=== PATIENT | male | born 1975 | race Caucasian/White ===

== ENCOUNTER 2020-02-17 19:24 | Inpatient (IN) | payer OTHER ==
[2020-02-17 19:31] VITALS: BMI 26.5
[2020-02-17] MEDS ORDERED: LORazepam 2 MG/ML SDV VIAL ONE ×2 (19:54→20:24)
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
[2020-02-17 20:46] LABS: BASO % 0.7 % (0-2.0); EOS % 2.1 % (0-4.5); HEMATOCRIT 46.3 % (35.4-49); HEMOGLOBIN 15.8 GM/dL (11.7-16.9); LYMPH % 33.4 % (8-40); MCH 29.9 pg (25.7-33.7); MEAN CELL VOLUME 87.7 fl (80-96); MEAN PLT VOLUME 8.2 fl (7.5-11.1); MONO % 7.6 % (3.8-10.2); NEUT % 56.2 % (42.8-82.8); PLATELET COUNT 249 K/MM3 (134-434); RBC 5.28 M/mm3 (4.00-5.60); RDW 13.4 % (11.9-15.9); WHITE BLOOD COUNT 5.5 K/mm3 (4.0-10.0)
[2020-02-17 20:52] LABS: INR 0.87 (0.83-1.09); PROTHROMBIN TIME (PATIENT) 10.2 SEC (9.7-13.0)
[2020-02-17 21:13] LABS: ALBUMIN 4.2 g/dl (3.4-5.0); ALK PHOS 113 U/L (45-117); ANION GAP 11 MMOL/L (8-16); BILIRUBIN,TOTAL 0.5 mg/dL (0.2-1); BLOOD UREA NITROGEN 11.8 mg/dL (7-18); CALCIUM 8.3 mg/dL (8.5-10.1); CHLORIDE 106 mmol/L (98-107); CO2 25 mmol/L (21-32); CREATININE 0.8 mg/dL (0.55-1.3); GLUCOSE,RANDOM 90 mg/dL (74-106); LIPASE 210 U/L (73-393); MAGNESIUM 2.2 mg/dL (1.8-2.4); POTASSIUM 5.2 mmol/L (3.5-5.1); SGOT/AST 96 U/L (15-37); SGPT/ALT 87 U/L (13-61); SODIUM 142 mmol/L (136-145); TOT PROT 8.2 g/dl (6.4-8.2)
[2020-02-17] MEDS ORDERED: levETIRAcetam 500 MG/5 ML INJECTION VIAL IVPB ONE ×2 (21:19→21:32)
[2020-02-17] MEDS ORDERED: FOLIC ACID INJECTION - 1 MG, THIAMINE HCL 100 MG, MULTIVIT INJECTION ADULT 10 ML in SOD... IVPB ONE (21:21)
[2020-02-17 21:36] LABS: EPI CELLS 3 /uL (0-25.1); HYALINE CASTS 1 /uL (0-3.1); URINE APPEARANCE Error; URINE BACTERIA 24 /uL (0-1359); URINE BILIRUBIN NEGATIVE (NEGATIVE); URINE COLOR YELLOW; URINE GLUCOSE (UA) NEGATIVE (NEGATIVE); URINE KETONE NEGATIVE (NEGATIVE); URINE LEUK ESTERASE NEGATIVE (NEGATIVE); URINE NITRITE NEGATIVE (NEGATIVE); URINE PROTEIN 1+ (NEGATIVE); URINE RBC 5 /uL (0-23.9); URINE UROBILINOGEN 0.2 mg/dL (0.2-1.0); URINE WBC 2 /uL (0-25.8)
[2020-02-18] MEDS ORDERED: chlordiazePOXIDE HCL 25 MG CAPSULE PO ONE (06:28)
--- NOTE | 2020-02-18 06:33 | PDOC ---
*Physical Exam - Vital Signs Last Vital Signs Temp Pulse Resp BP Pulse Ox 98.4 F 79 22 H 128/84 95 02/17/20 19:29 02/18/20 02:21 02/18/20 02:21 02/18/20 02:21 02/18/20 02:21 - Physical Exam Physical Exam: Patient demonstrates bilateral hand tremmors, tongue fasciculations, and is tachycardic. ED Treatment Course - LABORATORY CBC & Chemistry Diagram: 02/17/20 20:00 02/17/20 21:32 - ADDITIONAL ORDERS Additional order review: Laboratory Results 02/17/20 02/17/20 02/17/20 21:32 20:15 20:00 PT with INR INR PTT (Actin FS) Sodium 142 Potassium 3.9 5.2 H Chloride 106 Carbon Dioxide 25 Anion Gap 11 BUN 11.8 Creatinine 0.8 Est GFR (CKD-EPI)AfAm 127.70 Est GFR (CKD-EPI)NonAf 110.18 Random Glucose 90 Calcium 8.3 L Magnesium 2.2 Total Bilirubin 0.5 AST 96 H ALT 87 H Alkaline Phosphatase 113 Creatine Kinase 675 H Creatine Kinase Index 0.4 CK-MB (CK-2) 2.75 Troponin I < 0.02 Total Protein 8.2 Albumin 4.2 Lipase 210 Urine Color Yellow Urine Appearance Error Urine pH 5.0 Ur Specific [place] 1.017 Urine Protein 1+ H Urine Glucose (UA) Negative Urine Ketones Negative Urine Blood Trace Urine Nitrite Negative Urine Bilirubin Negative Urine Urobilinogen 0.2 Ur Leukocyte Esterase Negative Urine WBC (Auto) 2 Urine RBC (Auto) 5 Urine Casts (Auto) 1 U Epithel Cells (Auto) 3 Urine Bacteria (Auto) 24 Alcohol, Quantitative 359.5 H 02/17/20 20:00 PT with INR 10.20 INR 0.87 PTT (Actin FS) 33.0 Sodium Potassium Chloride Carbon Dioxide Anion Gap BUN Creatinine Est GFR (CKD-EPI)AfAm Est GFR (CKD-EPI)NonAf Random Glucose Calcium Magnesium Total Bilirubin AST ALT Alkaline Phosphatase Creatine Kinase Creatine Kinase Index CK-MB (CK-2) Troponin I Total Protein Albumin Lipase Urine Color Urine Appearance Urine pH Ur Specific [place] Urine Protein Urine Glucose (UA) Urine Ketones Urine Blood Urine Nitrite Urine Bilirubin Urine Urobilinogen Ur Leukocyte Esterase Urine WBC (Auto) Urine RBC (Auto) Urine Casts (Auto) U Epithel Cells (Auto) Urine Bacteria (Auto) Alcohol, Quantitative 02/17/20 20:00 RBC 5.28 MCV 87.7 MCHC 34.0 RDW 13.4 MPV 8.2 D Neutrophils % 56.2 Lymphocytes % 33.4 Monocytes % 7.6 Eosinophils % 2.1 Basophils % 0.7 - Medications Given in the ED: ED Medications Discontinued Medications Generic Name Dose Route Start Last Admin Trade Name Freq PRN Reason Stop Dose Admin Folic Acid 1 mg/ Thiamine HCl 1,000 mls @ 125 mls/hr 02/17/20 21:21 02/17/20 22:00 100 mg/ Multivitamins/Minerals IVPB 02/18/20 05:20 125 mls/hr 10 ml/ Sodium Chloride ONCE ONE Administration Levetiracetam 1,000 mg 02/17/20 21:19 02/17/20 21:36 Keppra Injection - IVPB 02/17/20 21:20 1,000 mg ONCE ONE Administration Lorazepam 2 mg 02/17/20 20:18 02/17/20 20:29 Ativan Injection - IM 02/17/20 20:19 2 mg ONCE ONE Administration Medical Decision Making - Medical Decision Making Patient was reassessed at 6:20 am and found to be tachycardic with bilateral hand tremmors and tongue fasciculations. Will admit patient for acute alcohol withdrawal. dispo: admit to medicine for acute alcohol withdrawal. Discharge - Discharge Information Problems reviewed: Yes Clinical Impression/Diagnosis: Seizure Head injury Qualifiers: Encounter type: initial encounter Qualified Code(s): S09.90XA - Unspecified injury of head, initial encounter Condition: Improved Disposition: HOME - Additional Discharge Information Prescriptions: levETIRAcetam [Keppra -] 500 mg PO BID #14 tablet - Follow up/Referral - Patient Discharge Instructions Patient Printed Discharge Instructions: Seizure Disorder -- Adult Additional Instructions: You came to the ED for seizure like symptoms. This is most likely due to your seizure disorder. At the ED we got imaging and labs. The imaging showed no acute pathology. The labs showed elevated CPK which we gave you a banana bag for. You were having seizures here so we decided to give you medication for that and give you your medication for that as well. At the ED we observed you for any more seizures which you did not have. Please follow up with your neurologist within the next few days. Also, please follow up with rehab for your alcohol disorder. If you have any of the following please return: - unbreakable seizure - shortness of breath - chest pain. - unable to take anything by mouth For any emergent symptoms please call for medical help right away. - Post Discharge Activity
[2020-02-18] MEDS ORDERED: chlordiazePOXIDE HCL 25 MG CAPSULE ONE (06:34)
[2020-02-18] MEDS ORDERED: LORazepam 2 MG/ML SDV VIAL ONE ×3 (06:34→20:27)
--- NOTE | 2020-02-18 07:27 | PDOC ---
*Physical Exam - Vital Signs Last Vital Signs Temp Pulse Resp BP Pulse Ox 98.4 F 114 H 20 149/89 96 02/17/20 19:29 02/18/20 06:41 02/18/20 06:41 02/18/20 06:41 02/18/20 06:41 ED Treatment Course - LABORATORY CBC & Chemistry Diagram: 02/17/20 20:00 02/17/20 21:32 - ADDITIONAL ORDERS Additional order review: Laboratory Results 02/17/20 02/17/20 02/17/20 21:32 20:15 20:00 PT with INR INR PTT (Actin FS) Sodium 142 Potassium 3.9 5.2 H Chloride 106 Carbon Dioxide 25 Anion Gap 11 BUN 11.8 Creatinine 0.8 Est GFR (CKD-EPI)AfAm 127.70 Est GFR (CKD-EPI)NonAf 110.18 Random Glucose 90 Calcium 8.3 L Magnesium 2.2 Total Bilirubin 0.5 AST 96 H ALT 87 H Alkaline Phosphatase 113 Creatine Kinase 675 H Creatine Kinase Index 0.4 CK-MB (CK-2) 2.75 Troponin I < 0.02 Total Protein 8.2 Albumin 4.2 Lipase 210 Urine Color Yellow Urine Appearance Error Urine pH 5.0 Ur Specific [place] 1.017 Urine Protein 1+ H Urine Glucose (UA) Negative Urine Ketones Negative Urine Blood Trace Urine Nitrite Negative Urine Bilirubin Negative Urine Urobilinogen 0.2 Ur Leukocyte Esterase Negative Urine WBC (Auto) 2 Urine RBC (Auto) 5 Urine Casts (Auto) 1 U Epithel Cells (Auto) 3 Urine Bacteria (Auto) 24 Alcohol, Quantitative 359.5 H 02/17/20 20:00 PT with INR 10.20 INR 0.87 PTT (Actin FS) 33.0 Sodium Potassium Chloride Carbon Dioxide Anion Gap BUN Creatinine Est GFR (CKD-EPI)AfAm Est GFR (CKD-EPI)NonAf Random Glucose Calcium Magnesium Total Bilirubin AST ALT Alkaline Phosphatase Creatine Kinase Creatine Kinase Index CK-MB (CK-2) Troponin I Total Protein Albumin Lipase Urine Color Urine Appearance Urine pH Ur Specific [place] Urine Protein Urine Glucose (UA) Urine Ketones Urine Blood Urine Nitrite Urine Bilirubin Urine Urobilinogen Ur Leukocyte Esterase Urine WBC (Auto) Urine RBC (Auto) Urine Casts (Auto) U Epithel Cells (Auto) Urine Bacteria (Auto) Alcohol, Quantitative 02/17/20 20:00 RBC 5.28 MCV 87.7 MCHC 34.0 RDW 13.4 MPV 8.2 D Neutrophils % 56.2 Lymphocytes % 33.4 Monocytes % 7.6 Eosinophils % 2.1 Basophils % 0.7 - Medications Given in the ED: ED Medications Discontinued Medications Generic Name Dose Route Start Last Admin Trade Name Obey PRN Reason Stop Dose Admin Chlordiazepoxide HCl 50 mg 02/18/20 06:28 02/18/20 06:41 Librium - PO 02/18/20 06:29 50 mg ONCE ONE Administration Folic Acid 1 mg/ Thiamine HCl 1,000 mls @ 125 mls/hr 02/17/20 21:21 02/17/20 22:00 100 mg/ Multivitamins/Minerals IVPB 02/18/20 05:20 125 mls/hr 10 ml/ Sodium Chloride ONCE ONE Administration Levetiracetam 1,000 mg 02/17/20 21:19 02/17/20 21:36 Keppra Injection - IVPB 02/17/20 21:20 1,000 mg ONCE ONE Administration Lorazepam 2 mg 02/17/20 20:18 02/17/20 20:29 Ativan Injection - IM 02/17/20 20:19 2 mg ONCE ONE Administration Lorazepam 2 mg 02/18/20 06:28 02/18/20 06:40 Ativan Injection - IVPUSH 02/18/20 06:29 2 mg ONCE ONE Administration ED Progress Note - Progress Note Progress Note: 02/18/20 07:26 Patient accepted at sign out, pending admission for alcohol withdrawal. Comfortable in bed. Admitting resident examining the patient. Signed out to admitting team. 02/18/20 07:44 Discharge - Discharge Information Problems reviewed: Yes Clinical Impression/Diagnosis: Seizure Head injury Qualifiers: Encounter type: initial encounter Qualified Code(s): S09.90XA - Unspecified injury of head, initial encounter Alcohol withdrawal Qualifiers: Complication of substance-induced condition: uncomplicated Qualified Code(s): F10.230 - Alcohol dependence with withdrawal, uncomplicated Condition: Fair - Admission Yes - Follow up/Referral - Patient Discharge Instructions Patient Printed Discharge Instructions: Seizure Disorder -- Adult Additional Instructions: You came to the ED for seizure like symptoms. This is most likely due to your seizure disorder. At the ED we got imaging and labs. The imaging showed no acute pathology. The labs showed elevated CPK which we gave you a banana bag for. You were having seizures here so we decided to give you medication for that and give you your medication for that as well. At the ED we observed you for any more seizures which you did not have. Please follow up with your neurologist within the next few days. Also, please f ollow up with rehab for your alcohol disorder. If you have any of the following please return: - unbreakable seizure - shortness of breath - chest pain. - unable to take anything by mouth For any emergent symptoms please call for medical help right away. - Post Discharge Activity
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
[2020-02-18] MEDS ORDERED: FOLIC ACID INJECTION - 1 MG, THIAMINE HCL 100 MG, MULTIVIT INJECTION ADULT 10 ML in SOD... IVPB ONE (09:11)
[2020-02-18] MEDS ORDERED: IBUPROFEN 600 MG TABLET (FP) PO PRN (09:12)
--- NOTE | 2020-02-18 09:16 | EKG ---
Test Reason : Blood Pressure : / mmHG Vent. Rate : 094 BPM Atrial Rate : 094 BPM P-R Int : 124 ms QRS Dur : 094 ms QT Int : 388 ms P-R-T Axes : 056 -07 035 degrees QTc Int : 485 ms NORMAL SINUS RHYTHM ABNORMAL ECG NO PREVIOUS ECGS AVAILABLE Confirmed by MEJIA HARRIS MD ([id number]) on 02/18/2020 9:15:43 AM Referred By: Confirmed By:MEJIA HARRIS MD
[2020-02-18] MEDS ORDERED: PANTOPRAZOLE SODIUM 40 MG VIAL ONE (10:33)
[2020-02-18] MEDS ORDERED: FOLIC ACID 1 MG TABLET (FP) ONE (10:33)
[2020-02-18] MEDS ORDERED: MULTIVITAMINS (DAILY MVI) TABLET (FP) ONE (10:33)
[2020-02-18] MEDS ORDERED: HEPARIN NA (PORCINE) 5,000 UNITS/ML 1ML VIAL ONE (10:33)
[2020-02-18] MEDS ORDERED: levETIRAcetam 500 MG TABLET (FP) PO ONE ×2 (10:33→22:14)
[2020-02-18] MEDS ORDERED: THIAMINE HCL 100 MG TABLET (FP) ONE (10:33)
[2020-02-18] MEDS: levETIRAcetam 500 MG TABLET (FP) PO SCH ×2 (10:48→22:17)
[2020-02-18] MEDS: PANTOPRAZOLE SODIUM 40 MG VIAL IVPUSH SCH (10:48)
[2020-02-18] MEDS: HEPARIN NA (PORCINE) 5,000 UNITS/ML 1ML VIAL SQ SCH ×2 (10:48→18:08)
[2020-02-18] MEDS: NICOTINE 14 MG/24 HOURS TOPICAL PATCH TD SCH (11:28)
[2020-02-18 12:30] LABS: BASO % 0.6 % (0-2.0); EOS % 0.1 % (0-4.5); HEMATOCRIT 41.6 % (35.4-49); HEMOGLOBIN 14.2 GM/dL (11.7-16.9); LYMPH % 12.2 % (8-40); MCHC 34.2 g/dl (32.0-35.9); MEAN CELL VOLUME 87.6 fl (80-96); MEAN PLT VOLUME 8.4 fl (7.5-11.1); MONO % 4.8 % (3.8-10.2); NEUT % 82.3 % (42.8-82.8); PLATELET COUNT 220 K/MM3 (134-434); RBC 4.74 M/mm3 (4.00-5.60); RDW 13.1 % (11.9-15.9); WHITE BLOOD COUNT 8.5 K/mm3 (4.0-10.0)
[2020-02-18] MEDS ORDERED: PROMETHAZINE HCL 25 MG/1 ML VIAL IVPUSH PRN (15:24)
[2020-02-18] MEDS ORDERED: CEFTRIAXONE 1 GM in DEXTROSE 5%-WATER - 50 ML IVPB SCH (15:30)
[2020-02-18] MEDS ORDERED: CEFTRIAXONE 1 GM/50 ML BAG ONE (15:40)
--- NOTE | 2020-02-18 16:36 | CON.PSY ---
Psychiatry Consult Chief Complaint: 44 Year old male with Severe Substance abuse reansfeered from [facility] for Seizures. patient seen for Psych eval for? suicidal thoughts.. Patient denies that he reported feeling Suicidal. I drink a lot, came in for Detox. I dont want to Kill myself. - Previous Psychiatric Treatment Outpatient: None - Previous Substance Abuse Treatment Outpatient: More than 6 mos ago Inpatient: One prior admission - Reason for Previous Treatment Reason for Previous Treatment: Alcohol Abuse - Current Medications Current Medications: Active Medications Folic Acid (Folic Acid -) 1 mg PO DAILY [facility] Heparin Sodium (Porcine) (Heparin -) 5,000 unit SQ Q8H-IV WILLIAM Last Admin: 02/18/20 10:48 Dose: 5,000 unit Documented by: Folic Acid 1 mg/ Thiamine HCl 100 mg/ Multivitamins/Minerals 10 ml/ Sodium Chloride 1,000 mls @ 125 mls/hr IVPB ONCE ONE Stop: 02/18/20 17:10 Last Admin: 02/18/20 10:47 Dose: 125 mls/hr Documented by: Piperacillin Sod/Tazobactam (Sod 3.375 gm/ Dextrose) 50 mls @ 100 mls/hr IVPB Q8H-IV WILLIAM; Protocol Ibuprofen (Motrin -) 600 mg PO Q6H PRN PRN Reason: FEVER Levetiracetam (Keppra -) 500 mg PO BID [facility] Last Admin: 02/18/20 10:48 Dose: 500 mg Documented by: Lorazepam (Ativan Injection -) 2 mg IVPUSH Q4H PRN PRN Reason: ANXIETY Multivitamins/Minerals/Vitamin C (Tab-A-Vit -) 1 tab PO DAILY [facility] Nicotine (Nicoderm Patch -) 14 mg TD DAILY [facility] Last Admin: 02/18/20 11:28 Dose: 14 mg Documented by: Pantoprazole Sodium (Protonix Iv) 40 mg IVPUSH DAILY [facility] Last Admin: 02/18/20 10:48 Dose: 40 mg Documented by: Promethazine HCl (Phenergan Injection -) 12.5 mg IVPUSH Q6H PRN PRN Reason: NAUSEA Thiamine HCl (Vitamin B1 -) 100 mg PO DAILY [facility] - Allergies Allergies: Allergies Allergy/AdvReac Type Severity Reaction Status Date / Time No Known Drug Allergies Allergy Verified 02/17/20 19:31 seafood Allergy Uncoded 02/17/20 19:31 - Current Living Status Usual Living Arrangement: Alone - Current Mental Status Evaluation Appearance: Disheveled Attitude: Guarded - Affect Affect: Full Range Appropriateness: Appropriate to Content - Mood Mood: Irritable - Speech/Language Expressive: Coherent - Psychomotor Activity Psychomotor Activity: Normal - Thought Process Thought Process: Intact - Thought Content Hallucinations: Absent Delusions: Absent - Self Perception Self Perception: No Impairment - Cognition Attention: Alert Orientation: Time Memory, Immediate Recall: Intact Memory, Short Term: 3/3 Memory, Remote with Promptin/3 - Concentration Serial Sevens Intact: No Simple Calculations Intact: Yes - Abstraction Proverb Interpretation: Intact Judgement: Minimally Impaired - Insight Insight: Intact - Impulse Control Impulse Control: Minimally Impaired - Suicidal Ideation Suicidal Ideation: No - Homicidal Ideation Homicidal Ideation: No Assessment/Plan 1) Patient is not suicidal at this time. 2) No need for 1:1. 3) continue with Detox and Medical care for Seizures. 4) No psyxch meds needed now.
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
[2020-02-18] MEDS: PIPERACILLIN/TAZOB 3.375 GM 3.375 GM in DEXTROSE 5%-WATER - 50 ML IVPB SCH (17:31)
[2020-02-18] MEDS ORDERED: PIPERACILLIN/TAZOB 3.375 GM 3.375 GM/50 ML BAG IVPB ONE (17:33)
[2020-02-18] MEDS: LORazepam 2 MG/ML SDV VIAL IVPUSH PRN (20:51)
[2020-02-18] MEDS ORDERED: IBUPROFEN 600 MG TABLET (FP) PO ONE (22:14)
[2020-02-19] MEDS ORDERED: DEXTROSE 5%-WATER - 50 ML IVPB ONE ×3 (03:08→12:01)
[2020-02-19] MEDS ORDERED: PIPERACILLIN/TAZOBACTAM 3.375 GM VIAL IVPB ONE ×2 (03:08→09:24)
[2020-02-19] MEDS: HEPARIN NA (PORCINE) 5,000 UNITS/ML 1ML VIAL SQ SCH ×3 (03:56→17:28)
[2020-02-19] MEDS: PIPERACILLIN/TAZOB 3.375 GM 3.375 GM in DEXTROSE 5%-WATER - 50 ML IVPB SCH ×3 (03:56→12:05)
[2020-02-19 07:15] LABS: ALBUMIN 3.6 g/dl (3.4-5.0); BILIRUBIN,TOTAL 2.2 mg/dL (0.2-1); BLOOD UREA NITROGEN 13.5 mg/dL (7-18); CALCIUM 8.7 mg/dL (8.5-10.1); CREATININE 0.9 mg/dL (0.55-1.3); MAGNESIUM 1.7 mg/dL (1.8-2.4); PHOSPHOROUS 3.7 mg/dL (2.5-4.9); POTASSIUM 3.7 mmol/L (3.5-5.1); TOT PROT 6.6 g/dl (6.4-8.2)
[2020-02-19 07:16] LABS: BASO % 0.6 % (0-2.0); EOS % 4.3 % (0-4.5); HEMOGLOBIN 13.5 GM/dL (11.7-16.9); LYMPH % 27.9 % (8-40); MCH 29.7 pg (25.7-33.7); MCHC 34.6 g/dl (32.0-35.9); MEAN CELL VOLUME 85.7 fl (80-96); MEAN PLT VOLUME 8.4 fl (7.5-11.1); MONO % 11.4 % (3.8-10.2); NEUT % 55.8 % (42.8-82.8); PLATELET COUNT 195 K/MM3 (134-434); RBC 4.55 M/mm3 (4.00-5.60); WHITE BLOOD COUNT 5.5 K/mm3 (4.0-10.0)
[2020-02-19] MEDS ORDERED: MAGNESIUM CL 64 MG TABLET.SA PO ONE (07:48)
[2020-02-19] MEDS ORDERED: MAGNESIUM 1GM/D5W 100ML - 100 ML IVPB IVPB ONE (07:49)
[2020-02-19] MEDS: PANTOPRAZOLE SODIUM 40 MG VIAL IVPUSH SCH (09:51)
[2020-02-19] MEDS: FOLIC ACID 1 MG TABLET (FP) PO SCH (09:51)
[2020-02-19] MEDS: MULTIVITAMINS (DAILY MVI) TABLET (FP) PO SCH (09:51)
[2020-02-19] MEDS: NICOTINE 14 MG/24 HOURS TOPICAL PATCH TD SCH (09:51)
[2020-02-19] MEDS: levETIRAcetam 500 MG TABLET (FP) PO SCH ×2 (09:51→21:16)
[2020-02-19] MEDS: THIAMINE HCL 100 MG TABLET (FP) PO SCH (09:52)
[2020-02-19] MEDS ORDERED: cefTRIAXone SODIUM 1 GM VIAL ONE (12:01)
[2020-02-19] MEDS: CEFTRIAXONE 1 GM in DEXTROSE 5%-WATER - 50 ML IVPB SCH (12:04)
--- NOTE | 2020-02-19 12:10 | CON.GI ---
Consult Consult Specialty:: GI Referred by:: [facility] Reason for Consultation:: Colitis - History of Present Illness Chief Complaint: Seizures History of Present Illness: 44M admitted for evaluation of seizures. He drinks a gallon + of vodka per day. he lives in the [place] but was transported up to [facility] for detox. Describes abdominal pain for 2 days (upper andomen, left upper abdomen). Some loose bowel movements. No rectal bleeding. May have had a colonoscopy but cannot recall. No recent antibiotic use. Normal WBC's and afebrile on admission. There is question of right sided colitis on CT scan and also of pancreatic / peripancreatic calcirfications. Abd US revealed fatty liver. - History Source History Provided By: Patient, Medical Record - Past Medical History IV THERAPY NURSE: Yes: Seizure Gastrointestinal: Yes: Pancreatitis (8 years ago per patient) Psych: Yes: Addictions (AUD), Bipolar - Alcohol/Substance Use Hx Alcohol Use: Yes (1 gallon + per day) History of Substance Use: reports: Heroin (Past intranasal heroin abuse) - Smoking History Smoking history: Current every day smoker Have you smoked in the past 12 months: Yes Aproximately how many cigarettes per day: 10 - Social History Usual Living Arrangement: Alone ADL: Independent Occupation: Unemployed Place of : [facility] History of Recent Travel: No Home Medications - Allergies Allergies/Adverse Reactions: Allergies Allergy/AdvReac Type Severity Reaction Status Date / Time No Known Drug Allergies Allergy Verified 02/17/20 19:31 seafood Allergy Uncoded 02/17/20 19:31 - Home Medications Home Medications: Ambulatory Orders Aripiprazole [Abilify -] 20 mg PO BID #60 tablet 11/10/13 levETIRAcetam [Keppra -] 500 mg PO BID 02/18/20 Family Medical History Other Family History: Mother: : Lung Ca (non-smoker). Father: Killed. 2 brothers (one with heart surgery when younger), 2 sisters: healthy. 3 sons, 3 daughters: healthy. No family history of colorectal cancer or other GI malignancy Review of Systems - Review of Systems Constitutional: denies: Chills Cardiovascular: denies: Chest Pain Respiratory: denies: Cough Gastrointestinal: reports: Abdominal Pain, Diarrhea. denies: Dysphagia, Nausea, Rectal Bleeding Physical Exam-GI Vital Signs: Vital Signs Temperature 98.1 F 02/19/20 06:00 Pulse Rate 77 02/19/20 06:00 Respiratory Rate 20 02/19/20 06:00 Blood Pressure 134/92 02/19/20 06:00 O2 Sat by Pulse Oximetry (%) 96 02/19/20 01:18 Constitutional: Yes: Calm Eyes: No: Sclera Icterus Cardiovascular: Yes: Regular Rate and Rhythm Respiratory: Yes: CTA Bilaterally Gastrointestinal Inspection: No: Distention ...Auscultate: Yes: Normoactive Bowel Sounds ...Palpate: Yes: Soft, Tenderness (Mild TTP mid abdomen and left abdomen) ...Percussion: No: Tympanitic Edema: No (No LE edema) Neurological: Yes: Alert Labs: CBC, BMP 02/19/20 06:20 02/19/20 06:20 INR, PTT INR 0.87 (0.83-1.09) 02/17/20 20:00 Hepatic Panel Total Bilirubin 2.2 mg/dL (0.2-1) H 02/19/20 06:20 AST 46 U/L (15-37) H 02/19/20 06:20 ALT 58 U/L (13-61) 02/19/20 06:20 Alkaline Phosphatase 98 U/L (45-117) 02/19/20 06:20 Albumin 3.6 g/dl (3.4-5.0) 02/19/20 06:20 Problem List - Problems (1) Colitis Assessment/Plan: I did not appreciate a significant colitis on CT scan but described by radiologist. ? if undrdistention. Also patient with normal WBC's and afebrile Advise: Stool for culture, C. Diff toxin / antigen / O&P Antibiotics for now Clear diet, Advance as tolerated Advised need for complete alcohol cessation Can have follow-up colonoscopy whan acute issues are resolved. Will need outpatient follow-up of peripancreatic/pancreatic calcifications. Suspect chronic calcific pancreatitis This should be communicated to his PMD in the [place] prior to discharge. Needs complete tobacco cessation Elevated LFTs in setting of active alcohol abuse. Monitor. Follow-up hepatitis serologies, avoid hepatotoxic agents Code(s): K52.9 - NONINFECTIVE GASTROENTERITIS AND COLITIS, UNSPECIFIED
[2020-02-19] MEDS: LORazepam 2 MG/ML SDV VIAL IVPUSH PRN ×2 (12:13→21:17)
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
[2020-02-19] MEDS: DEXTROSE 5%-NORMAL SALINE 1,000 ML IV SCH (17:28)
[2020-02-19] MEDS: ACETAMINOPHEN 500 MG TABLET (FP) PO PRN (21:16)
[2020-02-20] MEDS: HEPARIN NA (PORCINE) 5,000 UNITS/ML 1ML VIAL SQ SCH ×3 (03:42→18:11)
[2020-02-20] MEDS: DEXTROSE 5%-NORMAL SALINE 1,000 ML IV SCH ×2 (05:48→14:30)
[2020-02-20 07:46] LABS: BASO % 0.7 % (0-2.0); EOS % 6.8 % (0-4.5); HEMATOCRIT 39.4 % (35.4-49); HEMOGLOBIN 13.7 GM/dL (11.7-16.9); LYMPH % 33.8 % (8-40); MCH 30.1 pg (25.7-33.7); MCHC 34.8 g/dl (32.0-35.9); MEAN CELL VOLUME 86.6 fl (80-96); MEAN PLT VOLUME 9.4 fl (7.5-11.1); MONO % 10.6 % (3.8-10.2); NEUT % 48.1 % (42.8-82.8); PLATELET COUNT 177 K/MM3 (134-434); RBC 4.55 M/mm3 (4.00-5.60); WHITE BLOOD COUNT 4.3 K/mm3 (4.0-10.0)
[2020-02-20 08:28] LABS: ALBUMIN 3.5 g/dl (3.4-5.0); BILIRUBIN,DIRECT 0.2 mg/dL (0.0-0.2); BILIRUBIN,TOTAL 1.2 mg/dL (0.2-1); BLOOD UREA NITROGEN 9.9 mg/dL (7-18); CALCIUM 8.4 mg/dL (8.5-10.1); CREATININE 0.7 mg/dL (0.55-1.3); MAGNESIUM 1.9 mg/dL (1.8-2.4); PHOSPHOROUS 3.4 mg/dL (2.5-4.9); POTASSIUM 3.4 mmol/L (3.5-5.1); TOT PROT 6.5 g/dl (6.4-8.2)
[2020-02-20] MEDS ORDERED: DEXTROSE 5%-WATER - 50 ML IVPB ONE (09:01)
[2020-02-20] MEDS ORDERED: cefTRIAXone SODIUM 1 GM VIAL ONE (09:01)
[2020-02-20] MEDS: CEFTRIAXONE 1 GM in DEXTROSE 5%-WATER - 50 ML IVPB SCH (09:30)
[2020-02-20] MEDS: FOLIC ACID 1 MG TABLET (FP) PO SCH (09:31)
[2020-02-20] MEDS: NICOTINE 14 MG/24 HOURS TOPICAL PATCH TD SCH (09:31)
[2020-02-20] MEDS: PANTOPRAZOLE 20 MG TABLET PO SCH (09:31)
[2020-02-20] MEDS: MULTIVITAMINS (DAILY MVI) TABLET (FP) PO SCH (09:31)
[2020-02-20] MEDS: levETIRAcetam 500 MG TABLET (FP) PO SCH ×2 (09:31→21:03)
[2020-02-20] MEDS: THIAMINE HCL 100 MG TABLET (FP) PO SCH (09:32)
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
[2020-02-20] MEDS: KCL 10 MEQ IVPB 10 MEQ/100 ML INFUS.BAG IVPB SCH ×2 (12:16→13:27)
--- NOTE | 2020-02-20 15:46 | PN.GI ---
GI Progress Note Subjective: Laying in bed watching TV Denies abdominal pain No N/V States having had formed BM today - Objective Vital Signs: Vital Signs Temperature 97.8 F 02/20/20 09:00 Pulse Rate 86 02/20/20 14:05 Respiratory Rate 02/20/20 14:05 Blood Pressure 136/84 02/20/20 14:05 O2 Sat by Pulse Oximetry (%) 92 L 02/20/20 09:00 Constitutional: Calm Eyes: No: Sclera Icterus Cardiovascular: Yes: Regular Rate and Rhythm Respiratory: Yes: CTA Bilaterally Gastrointestinal Inspection: No: Distention ...Auscultate: Yes: Normoactive Bowel Sounds ...Palpate: Yes: Soft. No: Hepatomegaly, Splenomegaly, Tenderness ...Percussion: No: Tympanitic Edema: No Neurological: Yes: Alert Labs: CBC, BMP 02/20/20 06:00 02/20/20 06:00 INR, PTT INR 0.87 (0.83-1.09) 02/17/20 20:00 Hepatic Panel Total Bilirubin 1.2 mg/dL (0.2-1) H 02/20/20 06:00 Direct Bilirubin 0.2 mg/dL (0.0-0.2) 02/20/20 06:00 AST 50 U/L (15-37) H 02/20/20 06:00 ALT 53 U/L (13-61) 02/20/20 06:00 Alkaline Phosphatase 90 U/L (45-117) 02/20/20 06:00 Albumin 3.5 g/dl (3.4-5.0) 02/20/20 06:00 Problem List - Problems (1) Colitis Assessment/Plan: Clinically improved Stool studies as outlined in initial consult Advance diet Code(s): K52.9 - NONINFECTIVE GASTROENTERITIS AND COLITIS, UNSPECIFIED
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
[2020-02-20] MEDS: ACETAMINOPHEN 500 MG TABLET (FP) PO PRN (21:03)
[2020-02-20] MEDS ORDERED: ARIPiprazole 20 MG TABLET PO SCH (22:00)
[2020-02-21] MEDS: MAG HYDROX/AL HYDROX/SIMETH 30 ML UNIT-DOSE CUP PO SCH ×4 (00:45→18:24)
[2020-02-21] MEDS: HEPARIN NA (PORCINE) 5,000 UNITS/ML 1ML VIAL SQ SCH ×3 (01:15→18:24)
[2020-02-21 07:27] LABS: BASO % 0.6 % (0-2.0); EOS % 5.4 % (0-4.5); HEMATOCRIT 38.9 % (35.4-49); HEMOGLOBIN 13.7 GM/dL (11.7-16.9); LYMPH % 36.3 % (8-40); MCH 30.1 pg (25.7-33.7); MCHC 35.1 g/dl (32.0-35.9); MEAN CELL VOLUME 85.6 fl (80-96); NEUT % 47.7 % (42.8-82.8); PLATELET COUNT 168 K/MM3 (134-434); RBC 4.55 M/mm3 (4.00-5.60); RDW 13.1 % (11.9-15.9); WHITE BLOOD COUNT 4.9 K/mm3 (4.0-10.0)
[2020-02-21 07:53] LABS: ALBUMIN 3.5 g/dl (3.4-5.0); BLOOD UREA NITROGEN 8.7 mg/dL (7-18); CALCIUM 8.9 mg/dL (8.5-10.1); MAGNESIUM 1.9 mg/dL (1.8-2.4); POTASSIUM 3.8 mmol/L (3.5-5.1)
[2020-02-21 07:58] LABS: BILIRUBIN,TOTAL 0.8 mg/dL (0.2-1); CREATININE 0.8 mg/dL (0.55-1.3); TOT PROT 6.8 g/dl (6.4-8.2)
[2020-02-21] MEDS ORDERED: PT OWN MED DRAWER 7, Y5N ONE (09:19)
[2020-02-21] MEDS: PANTOPRAZOLE 20 MG TABLET PO SCH (09:27)
[2020-02-21] MEDS: NICOTINE 14 MG/24 HOURS TOPICAL PATCH TD SCH (09:28)
[2020-02-21] MEDS: THIAMINE HCL 100 MG TABLET (FP) PO SCH (09:28)
[2020-02-21] MEDS: MULTIVITAMINS (DAILY MVI) TABLET (FP) PO SCH (09:28)
[2020-02-21] MEDS: levETIRAcetam 500 MG TABLET (FP) PO SCH ×2 (09:28→21:02)
[2020-02-21] MEDS: FOLIC ACID 1 MG TABLET (FP) PO SCH (09:28)
[2020-02-21] MEDS ORDERED: ARIPiprazole 20 MG TABLET PO SCH (10:00)
[2020-02-21] MEDS ORDERED: LORazepam 0.5 MG TABLET PO PRN (11:34)
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
[2020-02-21] MEDS ORDERED: ACETAMINOPHEN 1000 MG/100 ML VIAL (NON FORMULARY) IVPB PRN (13:46)
--- NOTE | 2020-02-21 14:30 | PN.GI ---
GI Progress Note Subjective: sleeping comfortably When awoken, offered no new complaints Abdominal pain improved per the patient - Objective Vital Signs: Vital Signs Temperature 98 F 02/21/20 09:00 Pulse Rate 80 02/21/20 09:00 Respiratory Rate 22 H 02/21/20 09:00 Blood Pressure 142/80 02/21/20 09:00 O2 Sat by Pulse Oximetry (%) 98 02/21/20 09:00 Constitutional: Calm Eyes: No: Sclera Icterus Cardiovascular: Yes: Regular Rate and Rhythm. No: Murmur Respiratory: Yes: CTA Bilaterally Gastrointestinal Inspection: No: Distention ...Auscultate: Yes: Normoactive Bowel Sounds ...Palpate: Yes: Soft. No: Hepatomegaly, Splenomegaly, Tenderness ...Percussion: No: Tympanitic ...Rectal Exam: Yes: Other (No xternal lesions, no masses, prostate not palpated as the patient could only somewhat cooperate with the exam. No blood, melena, stool) Labs: CBC, BMP 02/21/20 05:53 02/21/20 05:53 INR, PTT INR 0.87 (0.83-1.09) 02/17/20 20:00 Microbiology 02/20/20 16:10 Stool Clostridioides difficile Antigen - neg 02/20/20 16:10 Stool Clostridioides difficile Toxin Assay - neg Stool culture pending Problem List - Problems (1) Colitis Assessment/Plan: Minimal mucoid bowel movements per nurse without copious marvin diarrhea Normal WBC and patient afebrile, non toxic appearing Suportive care follow-up stool studies Code(s): K52.9 - NONINFECTIVE GASTROENTERITIS AND COLITIS, UNSPECIFIED (2) Abdominal pain Assessment/Plan: Overall patient states that pain has improved No melena reported by nursing normal Hgb and BUN not suggestive of upper GI bleed rectal exam unrevealing Code(s): R10.9 - UNSPECIFIED ABDOMINAL PAIN
[2020-02-21] MEDS: DEXTROSE 5%-NORMAL SALINE 1,000 ML IV SCH (18:23)
[2020-02-22] MEDS: MAG HYDROX/AL HYDROX/SIMETH 30 ML UNIT-DOSE CUP PO SCH ×4 (00:20→17:23)
[2020-02-22] MEDS: HEPARIN NA (PORCINE) 5,000 UNITS/ML 1ML VIAL SQ SCH ×3 (01:20→17:22)
[2020-02-22 07:09] LABS: BASO % 0.5 % (0-2.0); EOS % 3.8 % (0-4.5); HEMOGLOBIN 13.2 GM/dL (11.7-16.9); LYMPH % 29.6 % (8-40); MCHC 34.7 g/dl (32.0-35.9); MEAN CELL VOLUME 86.6 fl (80-96); MEAN PLT VOLUME 9.1 fl (7.5-11.1); MONO % 9.9 % (3.8-10.2); NEUT % 56.2 % (42.8-82.8); PLATELET COUNT 162 K/MM3 (134-434); RBC 4.39 M/mm3 (4.00-5.60); RDW 12.8 % (11.9-15.9)
[2020-02-22 07:42] LABS: ALBUMIN 3.5 g/dl (3.4-5.0); BILIRUBIN,TOTAL 1.1 mg/dL (0.2-1); CALCIUM 8.5 mg/dL (8.5-10.1); CREATININE 0.8 mg/dL (0.55-1.3); MAGNESIUM 2.1 mg/dL (1.8-2.4); PHOSPHOROUS 3.4 mg/dL (2.5-4.9); POTASSIUM 3.6 mmol/L (3.5-5.1)
[2020-02-22 07:44] LABS: TOT PROT 6.5 g/dl (6.4-8.2)
[2020-02-22 07:55] LABS: BLOOD UREA NITROGEN 12.2 mg/dL (7-18)
[2020-02-22] MEDS: FOLIC ACID 1 MG TABLET (FP) PO SCH (09:14)
[2020-02-22] MEDS: MULTIVITAMINS (DAILY MVI) TABLET (FP) PO SCH (09:14)
[2020-02-22] MEDS: NICOTINE 14 MG/24 HOURS TOPICAL PATCH TD SCH (09:14)
[2020-02-22] MEDS: levETIRAcetam 500 MG TABLET (FP) PO SCH (09:14)
[2020-02-22] MEDS: PANTOPRAZOLE 20 MG TABLET PO SCH (09:14)
[2020-02-22] MEDS: THIAMINE HCL 100 MG TABLET (FP) PO SCH (09:15)
[2020-02-22] MEDS ORDERED: ARIPiprazole 15 MG TABLET PO SCH (10:00)
[2020-02-22] MEDS ORDERED: ARIPiprazole 20 MG TABLET PO SCH (10:00)
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
[2020-02-22 14:24] VITALS: BP 146/74; PULSE 82; TEMP 97.8
--- NOTE | 2020-02-22 16:46 | DS ---
Physical Exam: SUBJECTIVE: Patient seen and examined at bedside. The patient reports that he no longer has black stools, with only a couple bowel movements. The patient denies fever/chills, nausea, and abdominal pain. OBJECTIVE: Vital Signs Period Temp Pulse Resp BP Sys/Rubio Pulse Ox Last 24 Hr 97.5 F-98.1 F 76-89 17-20 118-149/63-102 95-100 PHYSICAL EXAM GENERAL: The patient is awake, alert, and fully oriented, in no acute distress. HEAD: Normal with no signs of trauma. EYES: PERRL, extraocular movements intact. No ptosis. ENT: Ears normal, nares patent, oropharynx clear without exudates, moist mucous membranes. NECK: Trachea midline, full range of motion, supple. LUNGS: Breath sounds equal, clear to auscultation bilaterally, no wheezes, no crackles, no accessory muscle use. HEART: Regular rate and rhythm, S1, S2 without murmur, rub or gallop. ABDOMEN: Soft, nontender, nondistended, normoactive bowel sounds, no guarding, no rebound, no masses. EXTREMITIES: 2+ pulses, warm, well-perfused, no edema. NEUROLOGICAL: Cranial nerves II through XII grossly intact. Normal speech, gait not observed. PSYCH: Normal mood, normal affect. SKIN: Warm, dry, normal turgor, no rashes or lesions noted LABS Laboratory Results - last 24 hr 02/22/20 02/22/20 02/22/20 05:40 05:40 12:00 WBC 6.0 RBC 4.39 Hgb 13.2 Hct 38.0 MCV 86.6 MCH 30.0 MCHC 34.7 RDW 12.8 Plt Count 162 MPV 9.1 Absolute Neuts (auto) 3.4 Neutrophils % 56.2 Lymphocytes % 29.6 Monocytes % 9.9 Eosinophils % 3.8 Basophils % 0.5 Nucleated RBC % 0 Sodium 139 Potassium 3.6 Chloride 104 Carbon Dioxide 28 Anion Gap 8 BUN 12.2 Creatinine 0.8 Est GFR (CKD-EPI)AfAm 127.70 Est GFR (CKD-EPI)NonAf 110.18 Random Glucose 97 Calcium 8.5 Phosphorus 3.4 Magnesium 2.1 Total Bilirubin 1.1 H AST 77 H ALT 77 H Alkaline Phosphatase 85 Total Protein 6.5 Albumin 3.5 Stool Occult Blood Negative HOSPITAL COURSE: Date of Admission:02/18/20 44 year old male patient with past medical history that includes seizure disorder, alcohol dependence, chronic pancreatitis, bipolar disorder, previous suicide attempt, alcohol abuse, and tobacco use, who presented from [facility] with seizure after running out of seizure meds 1 week ago. The seizure was also likely secondary to withdrawal, so the patient was placed on Ativan protocol for alcohol withdrawal. B12 and Folate given. Patient discharged home because he declined rehab at [facility]. The patient was also instructed to comply with his home Keppra. The patient had some abdominal pain during the hospital stay, and a PPI was continued after discharge due to the resolved abdominal pain being from possible gastritis. Patient counseled about alcohol abstinence. Date of Discharge: 02/22/20 Minutes to complete discharge: 38 Discharge Summary Problems reviewed: Yes Reason For Visit: ALCOHOL WITHDRAWL SYNDROME SEIZURE Condition: Improved - Instructions Diet, Activity, Other Instructions: You were admitted to the hospital because of a seizure. We evaluated you with lab work, blood work, and imaging including a CAT scan of your abdomen and pelvis. We treated you with medication and your symptoms resolved. On the CAT scan, we found calcium in your pancreas. Please follow up with the national coverage specialist regarding this finding ( you need an MRI for that ) . Recommendation Please do not drive or operate heavy machinery until you follow up with the Neurologist about the seizure. Also, please eat a healthy diet, stay well hydrated, and avoid alcohol and smoking. Alcohol may have been a possible cause for your seizure. Alcohol and smoking are dangerous for your whole body, including your liver, heart, and br ain. Imaging Findings A CAT scan of your abdomen and pelvis found that you have a fatty liver and also findings suggestive of inflammation of your colon. Please follow up with the national coverage specialist regarding this finding. you will need colonoscopy The CAT scan also found a 2.1cm x 1.8cm area of your pancreas that has calcium that shows up on the CAT scan. Please follow up with the national coverage specialist about this finding. The CAT scan also found that you have a fatty liver. Please follow up with the national coverage specialist regarding this finding. Medications Please take Keppra 500mg every 12 hours to prevent seizures. Please continue all of your medications as prescribed. Follow ups Please follow up with the Group Exercise Manager Dr. Christiano Vieira regarding the findings that were found on the CAT scan of your abdomen and pelvis within 1 week. Please follow up with the Neurologist Dr. Chris Hughes regarding your seizure within 1 week. Please follow up with your Primary Care physician, or the Primary Care physician we have provided for you Dr. Gerry Robin, within 2 weeks. If you experience worsening symptoms, chest pain, shortness of breath, abdominal pain, fainting, or worsening of your condition, please come to the emergency room or call 911. Referrals: Gerry Robin MD [Staff Physician] - 2 Weeks Mane Vieira DO [Staff Physician] - 1 Week (A CAT scan of the patient's abdomen and pelvis found: "thickening of the cecum and proximal ascending colon wall and questionable mild thickening of the proximal sigmoid colon wall suggestive of colitis, inflammatory versus infectious" (i.e might need colonoscopy to check for possible IBD), "heterogeneous calcific density inseparable from the pancreatic tail measuring 2.1 x 1.8 cm which is nonspecific it is unclear whether this may represent a calcified lymph node, a calcified pancreatic tail lesion or sequelae of chronic pancreatitis" (i.e. might need MRCP to r/o any sort of cancer); also: "diffuse decreased attenuation compatible with a fatty liver") Chris Hughes MD [Staff Physician] - 1 Week (Seizure) Disposition: HOME - Home Medications Comprehensive Discharge Medication List: Ambulatory Orders Clonazepam 1 mg PO DAILY 02/20/20 Aripiprazole [Abilify] 15 mg PO DAILY 02/21/20 Folic Acid 1 mg PO DAILY #30 tablet 02/22/20 Multivitamins [Multivit ([facility] Formulary)] 1 tab PO DAILY 30 Days #30 tab 02/22/20 Pantoprazole Sodium [Protonix] 40 mg PO DAILY #14 tablet. 02/22/20 Thiamine HCl [B-1] 100 mg PO DAILY #30 tablet 02/22/20 levETIRAcetam [Keppra -] 500 mg PO BID #60 tablet 02/22/20 This patient is new to me today: No Emergency Visit: Yes ED Registration Date: 02/18/20 Care time: The patient presented to the Emergency Department on the above date and was hospitalized for further evaluation of their emergent condition. Critical Care patient: No - Discharge Referral Referred to [facility] No ATTENDING PHYSICIAN STATEMENT I saw and evaluated the patient. I reviewed the resident's note and discussed the case with the resident. I agree with the resident's findings and plan as documented. SUBJECTIVE: OBJECTIVE: ASSESSMENT AND PLAN:
[2020-02-22] MEDS: DEXTROSE 5%-NORMAL SALINE 1,000 ML IV SCH (17:23)
== END 2020-02-22 17:33 | disposition home or self-care (01) | DRG 775 ==
LOC: JER 19:24 → JERBED 02-18 10:45 → J4W 02-19 00:21
PROVIDERS: ADMIT Internal Medicine; ATTEND Internal Medicine
PROC: HZ2ZZZZ Detoxification Services for Substance Abuse Treatment (ICD-10-PCS; principal; 2020-02-18)
DX: F10.239 Alcohol dependence with withdrawal, unspecified (principal); G40.909 Epilepsy, unspecified, not intractable, without status epilepticus; F12.90 Cannabis use, unspecified, uncomplicated; F17.210 Nicotine dependence, cigarettes, uncomplicated; S22.32XA Fracture of one rib, left side, initial encounter for closed fracture; K29.70 Gastritis, unspecified, without bleeding; F31.9 Bipolar disorder, unspecified; K52.9 Noninfective gastroenteritis and colitis, unspecified; K86.1 Other chronic pancreatitis; R74.0 Nonspecific elevation of levels of transaminase and lactic acid dehydrogenase [LDH]; S00.211A Abrasion of right eyelid and periocular area, initial encounter; W18.30XA Fall on same level, unspecified, initial encounter; Y92.89 Other specified places as the place of occurrence of the external cause; R94.31 Abnormal electrocardiogram [ECG] [EKG]; Z91.14 Patient's other noncompliance with medication regimen
CPT/HCPCS: 36415; 70450-TC; 71045-TC-FY; 71101-TC-LT-FY; 72125-TC; 74019-TC-FY; 74177-TC; 76705-TC; 80048; 80053; 80074; 80076; 80177; 80307; 81003; 82272; 82550; 82553; 83605; 83690; 83735; 84100; 84132; 84484; 85025; 85610; 85730; 86705; 87040; 87045; 87046; 87177; 87209; 87324; 87449; 93005; 93010; 94010; 99285-25; J1644; Q9967; U0003

== ENCOUNTER 2024-04-09 15:27 | Inpatient (IN) | payer OTHER ==
[2024-04-09 15:56] VITALS: BMI 23.3
[2024-04-09] MEDS ORDERED: guaiFENesin 600 MG TABLET.ER (FP) PO PRN (17:01)
[2024-04-09] MEDS ORDERED: NALOXONE (NARCAN) HCL 4 MG/0.1 ML SPRAY NS PRN (17:01)
[2024-04-09] MEDS ORDERED: POLYETHYLENE GLYCOL (HEALTHYLAX) 3350 17 GM PACKET PO PRN (17:01)
[2024-04-09] MEDS ORDERED: BISMUTH SUBSALICYLATE 524 MG/30 ML PO PRN (17:01)
[2024-04-09] MEDS ORDERED: BENZONATATE 200 MG CAPSULE PO PRN (17:01)
[2024-04-09] MEDS ORDERED: BENZOCAINE/MENTHOL (CHLORASEPTIC ) LOZENGE MM PRN (17:01)
[2024-04-09] MEDS ORDERED: NICOTINE POLACRILEX 2 MG GUM BUC PRN (17:01)
[2024-04-09] MEDS ORDERED: LOPERAMIDE HCL 2 MG CAPSULE PO PRN (17:01)
[2024-04-09] MEDS ORDERED: MAG HYDROX/AL HYDROX/SIMETH 30 ML UNIT-DOSE CUP PO PRN (17:01)
[2024-04-09] MEDS ORDERED: NICOTINE POLACRILEX 2 MG LOZENGE BC PRN (17:01)
[2024-04-09] MEDS ORDERED: DICYCLOMINE HCL 10 MG CAPSULE PO PRN (17:01)
[2024-04-09] MEDS ORDERED: ONDANSETRON *ODT* 4 MG TABLET SL PRN (17:01)
[2024-04-09] MEDS ORDERED: MAGNESIUM HYDROX 2400MG/30ML ORAL SUSPENSION 30 ML CUP PO PRN (17:01)
[2024-04-09] MEDS ORDERED: methaDONE HCL 10 MG TABLET (FOR DETOX USE ONLY) ONE (18:41)
[2024-04-09] MEDS ORDERED: cloNIDine HCL 0.1 MG TABLET ONE (18:42)
[2024-04-09] MEDS: methaDONE HCL 10 MG TABLET PO ONE (18:49)
[2024-04-09] MEDS: cloNIDine HCL 0.1 MG TABLET PO SCH (18:49)
[2024-04-09] MEDS: IBUPROFEN 600 MG TABLET (FP) PO PRN (22:04)
[2024-04-09] MEDS: levETIRAcetam 500 MG TABLET (FP) PO SCH (22:04)
[2024-04-09] MEDS: THIAMINE 100 MG TABLET PO SCH (22:04)
[2024-04-09] MEDS: MELATONIN 5 MG TABLETS PO SCH (22:05)
[2024-04-09] MEDS: methaDONE HCL 10 MG TABLET PO PRN (22:05)
[2024-04-10] MEDS: IBUPROFEN 400 MG TABLET (FP) PO PRN (05:05)
[2024-04-10] MEDS: PANTOPRAZOLE 40 MG TABLET PO SCH (09:27)
[2024-04-10] MEDS: NICOTINE 21 MG/24 HOURS TOPICAL PATCH TD SCH (09:27)
[2024-04-10] MEDS: PRENATAL VITAMINS W/ FOLIC ACID TABLET (FP) PO SCH (09:27)
[2024-04-10] MEDS: methaDONE 40 MG, methaDONE 10 MG PO ONE (09:28)
[2024-04-10] MEDS: METHOCARBAMOL 500 MG TABLET PO PRN (09:30)
[2024-04-10 14:36] LABS: CHLORIDE 105 mmol/L (98-107); POTASSIUM 4.3 mmol/L (3.5-5.1); SODIUM 142 mmol/L (136-145)
[2024-04-10 14:38] LABS: ALBUMIN 3.1 g/dl (3.4-5.0); ANION GAP 6 mmol/L (4-13); CALCIUM 8.6 mg/dL (8.5-10.1); CO2 31 mmol/L (21-32)
[2024-04-10 14:39] LABS: BLOOD UREA NITROGEN 20.8 mg/dL (7-18); GLUCOSE,RANDOM 106 mg/dL (74-106); HEMATOCRIT 35.8 % (35.4-49); HEMOGLOBIN 11.6 GM/dL (11.7-16.9); MCH 27.8 pg (25.7-33.7); MCHC 32.5 g/dl (32.0-35.9); MEAN CELL VOLUME 85.5 fl (80-96); MEAN PLT VOLUME 9.3 fl (7.5-11.1); PLATELET COUNT 364 10^3/uL (134-434); RBC 4.19 M/mm3 (4.00-5.60); RDW 12.9 % (11.9-15.9); WHITE BLOOD COUNT 7.3 K/mm3 (4.0-10.0)
[2024-04-10 14:41] LABS: SGOT/AST 7 U/L (15-37); SGPT/ALT 17 U/L (13-61)
[2024-04-10 14:42] LABS: CREATININE 0.7 mg/dL (0.55-1.3)
[2024-04-10 14:43] LABS: BILIRUBIN,TOTAL 0.2 mg/dL (0.2-1); TOT PROT 6.1 g/dl (6.4-8.2)
[2024-04-10 14:44] LABS: ALK PHOS 106 U/L (45-117)
[2024-04-10] MEDS: ARIPiprazole 15 MG TABLET PO SCH (22:17)
[2024-04-11] MEDS ORDERED: cloNIDine HCL 0.1 MG TABLET PO PRN
[2024-04-11] MEDS: hydrOXYzine PAMOATE 25 MG CAPSULE (FP) PO PRN (09:16)
[2024-04-11] MEDS: methaDONE 40 MG, methaDONE 20 MG PO ONE (09:16)
[2024-04-12] MEDS: methaDONE 40 MG, methaDONE 30 MG PO ONE (09:42)
[2024-04-12] MEDS: ACETAMINOPHEN 325 MG TABLET (FP) PO PRN (18:00)
[2024-04-13] MEDS: methaDONE HCL 40 MG DISPERSABLE TABLET PO ONE (09:45)
[2024-04-14] MEDS: methaDONE 80 MG, methaDONE 10 MG PO ONE (09:20)
[2024-04-14 21:20] VITALS: TEMP 97.6
[2024-04-15 08:52] VITALS: BP 152/81; PULSE 72; RESP 18
[2024-04-15] MEDS: methaDONE 80 MG, methaDONE 10 MG PO ONE (10:36)
[2024-04-15] MEDS: NALOXONE (NYS OPIOID OVERDOSE PROGRAM) 4 MG/0.1 ML SPRAY NS PRN (12:07)
== END 2024-04-15 12:05 | disposition other institution (70) | DRG 773 ==
LOC: YASAS 15:27 → Y6N 18:40
PROVIDERS: ADMIT Allergy & Immunology; ATTEND Surgery
PROC: HZ2ZZZZ Detoxification Services for Substance Abuse Treatment (ICD-10-PCS; principal; 2024-04-09)
DX: F11.23 Opioid dependence with withdrawal (principal); F10.230 Alcohol dependence with withdrawal, uncomplicated; F17.210 Nicotine dependence, cigarettes, uncomplicated; F19.280 Other psychoactive substance dependence with psychoactive substance-induced anxiety disorder; F19.282 Other psychoactive substance dependence with psychoactive substance-induced sleep disorder; G40.909 Epilepsy, unspecified, not intractable, without status epilepticus; K21.9 Gastro-esophageal reflux disease without esophagitis; M16.11 Unilateral primary osteoarthritis, right hip; Z59.00 Homelessness unspecified
CPT/HCPCS: 36415; 80053; 80305; 80307; 85027; 86780; 87811; 93005; 93010

== ENCOUNTER 2024-04-15 12:45 | Inpatient (IN) | payer OTHER ==
[2024-04-15] MEDS ORDERED: MAG HYDROX/AL HYDROX/SIMETH 30 ML UNIT-DOSE CUP PO PRN (14:02)
[2024-04-15] MEDS ORDERED: guaiFENesin 600 MG TABLET.ER (FP) PO PRN (14:02)
[2024-04-15] MEDS ORDERED: hydrOXYzine PAMOATE 25 MG CAPSULE (FP) PO PRN (14:02)
[2024-04-15] MEDS ORDERED: NICOTINE POLACRILEX 2 MG GUM BUC PRN (14:02)
[2024-04-15] MEDS ORDERED: BENZOCAINE/MENTHOL (CHLORASEPTIC ) LOZENGE MM PRN (14:02)
[2024-04-15] MEDS ORDERED: LOPERAMIDE HCL 2 MG CAPSULE PO PRN (14:02)
[2024-04-15] MEDS ORDERED: POLYETHYLENE GLYCOL (HEALTHYLAX) 3350 17 GM PACKET PO PRN (14:02)
[2024-04-15] MEDS ORDERED: ACETAMINOPHEN 325 MG TABLET (FP) PO PRN (14:02)
[2024-04-15] MEDS ORDERED: BENZONATATE 200 MG CAPSULE PO PRN (14:02)
[2024-04-15] MEDS ORDERED: IBUPROFEN 400 MG TABLET (FP) PO PRN (14:02)
[2024-04-15] MEDS ORDERED: MAGNESIUM HYDROX 2400MG/30ML ORAL SUSPENSION 30 ML CUP PO PRN (14:02)
[2024-04-15] MEDS: METHOCARBAMOL 500 MG TABLET PO PRN (15:01)
[2024-04-15] MEDS: THIAMINE 100 MG TABLET PO SCH (21:55)
[2024-04-15] MEDS: MELATONIN 5 MG TABLETS PO SCH (21:55)
[2024-04-15] MEDS: levETIRAcetam 500 MG TABLET (FP) PO SCH (21:56)
[2024-04-16] MEDS: methaDONE 80 MG, methaDONE 10 MG PO SCH (05:32)
[2024-04-16] MEDS: NICOTINE 21 MG/24 HOURS TOPICAL PATCH TD SCH (05:32)
[2024-04-16] MEDS ORDERED: methaDONE HCL 10 MG TABLET PO SCH (06:00)
[2024-04-16] MEDS: MULTIVITAMINS (DAILY MVI) TABLET (FP) PO SCH (10:00)
[2024-04-16] MEDS: ARIPiprazole 15 MG TABLET PO SCH (10:23)
[2024-04-16] MEDS: PANTOPRAZOLE 40 MG TABLET PO SCH (10:23)
[2024-04-16] MEDS: IBUPROFEN 600 MG TABLET (FP) PO PRN (18:09)
[2024-04-20] MEDS ORDERED: ACETAMINOPHEN 325 MG TABLET (FP) PO PRN (14:08)
[2024-04-20] MEDS: LIDOCAINE 4% PATCH TP SCH (14:30)
[2024-04-20] MEDS: LIDOCAINE PATCH REMOVAL MC SCH (21:28)
[2024-04-20] MEDS: BACLOFEN 10 MG TABLET (FP) PO SCH (21:28)
[2024-04-20] MEDS: METHYL SALICYLATE/MENTHOL 30 GM TUBE TP SCH (21:28)
[2024-04-21] MEDS: ARIPiprazole 15 MG TABLET PO SCH (21:26)
[2024-04-23] MEDS ORDERED: levETIRAcetam 250 MG TABLET PO ONE (09:16)
[2024-04-24] MEDS: IBUPROFEN 600 MG TABLET (FP) PO PRN (13:05)
[2024-04-29] MEDS ORDERED: ALBUTEROL SO4 2.5/IPRATROPIUM 0.5 INH SOL 3 ML VIAL.NEB. NEB ONE (16:41)
[2024-04-29] MEDS: ALBUTEROL SO4 2.5/IPRATROPIUM 0.5 INH SOL 3 ML VIAL.NEB. NEB ONE (16:42)
[2024-05-01] MEDS: SUVOREXANT 10 MG TABLET PO PRN (21:49)
[2024-05-02] MEDS: METHOCARBAMOL 500 MG TABLET PO PRN (19:23)
[2024-05-07 06:41] VITALS: RESP 16
[2024-05-07 08:54] VITALS: BP 120/79; PULSE 85; TEMP 96.8
== END 2024-05-07 09:22 | disposition home or self-care (01) | DRG 772 ==
LOC: YASAS 12:45 → Y3NR 12:47 → Y3E 04-17 09:54 → Y6N 04-20 17:05 → Y3E 04-20 17:08
PROVIDERS: ADMIT Allergy & Immunology; ATTEND Psychiatry & Neurology Pain Medicine
PROC: HZ42ZZZ Group Counseling for Substance Abuse Treatment, Cognitive-Behavioral (ICD-10-PCS; principal; 2024-04-15)
DX: F11.20 Opioid dependence, uncomplicated (principal); F14.20 Cocaine dependence, uncomplicated; F17.210 Nicotine dependence, cigarettes, uncomplicated; F31.9 Bipolar disorder, unspecified; F19.282 Other psychoactive substance dependence with psychoactive substance-induced sleep disorder; F19.280 Other psychoactive substance dependence with psychoactive substance-induced anxiety disorder; G40.909 Epilepsy, unspecified, not intractable, without status epilepticus; I10 Essential (primary) hypertension; J44.9 Chronic obstructive pulmonary disease, unspecified; K21.9 Gastro-esophageal reflux disease without esophagitis; M16.11 Unilateral primary osteoarthritis, right hip; Z87.19 Personal history of other diseases of the digestive system
CPT/HCPCS: 71046-TC-FY; 82962; 93005; 93010; 94640; J0475

== ENCOUNTER 2024-04-29 17:27 | Emergency (ER) | payer OTHER ==
[2024-04-29 17:55] VITALS: TEMP 98.4; BMI 24.7
[2024-04-29 18:58] LABS: BASO % 0.4 % (0-2.0); EOS % 6.2 % (0-4.5); HEMATOCRIT 36.6 % (35.4-49); HEMOGLOBIN 12.2 GM/dL (11.7-16.9); MCHC 33.2 g/dl (32.0-35.9); MEAN CELL VOLUME 84.3 fl (80-96); MEAN PLT VOLUME 8.8 fl (7.5-11.1); MONO % 11.6 % (3.8-10.2); NEUT % 63.8 % (42.8-82.8); PLATELET COUNT 345 10^3/uL (134-434); RBC 4.34 M/mm3 (4.00-5.60); WHITE BLOOD COUNT 8.5 K/mm3 (4.0-10.0)
[2024-04-29 19:00] LABS: URINE APPEARANCE CLEAR; URINE BILIRUBIN NEGATIVE (NEGATIVE); URINE COLOR YELLOW; URINE GLUCOSE (UA) NEGATIVE (NEGATIVE); URINE KETONE NEGATIVE (NEGATIVE); URINE LEUK ESTERASE NEGATIVE (NEGATIVE); URINE NITRITE NEGATIVE (NEGATIVE); URINE PROTEIN NEGATIVE (NEGATIVE); URINE UROBILINOGEN 0.2 mg/dL (0.2-1.0)
[2024-04-29] MEDS ORDERED: levETIRAcetam 500 MG TABLET (FP) PO ONE ×2 (19:19→20:59)
[2024-04-29] MEDS: levETIRAcetam 500 MG TABLET (FP) PO ONE ×2 (19:27→21:02)
[2024-04-29 19:37] VITALS: BP 101/63; RESP 12
[2024-04-29 19:44] VITALS: PULSE 79
[2024-04-29 19:57] LABS: POTASSIUM 4.4 mmol/L (3.5-5.1)
[2024-04-29 19:59] LABS: ALBUMIN 3.4 g/dl (3.4-5.0); CALCIUM 8.4 mg/dL (8.5-10.1)
[2024-04-29 20:00] LABS: MAGNESIUM 1.9 mg/dL (1.8-2.4)
[2024-04-29 20:03] LABS: CREATININE 0.8 mg/dL (0.55-1.3)
[2024-04-29 20:04] LABS: BILIRUBIN,TOTAL 0.3 mg/dL (0.2-1); TOT PROT 7.1 g/dl (6.4-8.2)
[2024-04-29] MEDS ORDERED: ACETAMINOPHEN 325 MG TABLET (FP) ONE (21:51)
[2024-04-29] MEDS: ACETAMINOPHEN 500 MG TABLET (FP) PO ONE (22:04)
== END 2024-04-29 22:04 | disposition home or self-care (01) ==
LOC: JER 17:27
DX: R56.9 Unspecified convulsions (principal); R07.9 Chest pain, unspecified
CPT/HCPCS: 36415; 71045-TC-FY; 80053; 80177; 81003; 83690; 83735; 84484; 85025; 93005; 93010; 99285-25